=== PATIENT | male | born 1955 | race Caucasian/White ===

== ENCOUNTER 2017-01-12 13:31 | Emergency (ER) | payer MEDICAID ==
[~2017-01-12] VITALS: Ht 177.8 cm; Wt 81.6 kg
[2017-01-12 13:44] VITALS: BP 133/76; PULSE 76; RESP 16; TEMP 97.3; O2SAT 96
[2017-01-12] MEDS ORDERED: HYDROcodone/ACETAMIN 5-325 MG TAB (NORCO/ VICODIN) PO ONE (14:15)
[2017-01-12] MEDS ORDERED: CEPHALEXIN 500 MG CAPSULE PO ONE (14:15)
[2017-01-12 14:38] VITALS: BP 132/72; PULSE 72; RESP 18; TEMP 97.8; O2SAT 98
== END 2017-01-12 14:35 | disposition home or self-care (01) ==
LOC: SED 13:31
DX: M25.561 Pain in right knee (principal); J45.909 Unspecified asthma, uncomplicated; I10 Essential (primary) hypertension; Z88.0 Allergy status to penicillin; Z88.8 Allergy status to other drugs, medicaments and biological substances
CPT/HCPCS: 99283